=== PATIENT | female | born 2000 | race Two or more races ===

== ENCOUNTER → 2020-02-28 | Outpatient (CLI) | payer OTHER | END | disposition home or self-care (01) | LOC: PRENATAL 11:00 | PROVIDERS: ATTEND Obstetrics & Gynecology | DX: O35.0XX1 Maternal care for (suspected) central nervous system malformation in fetus, fetus 1 (principal); O35.3XX1 Maternal care for (suspected) damage to fetus from viral disease in mother, fetus 1; O26.872 Cervical shortening, second trimester ==

== ENCOUNTER 2020-06-28 16:18 | Outpatient (CLI) | payer OTHER | END 2020-06-29 14:40 | disposition home or self-care (01) | LOC: OBS/DEL 16:18 | PROVIDERS: ATTEND Obstetrics & Gynecology | DX: O76 Abnormality in fetal heart rate and rhythm complicating labor and delivery (principal); Z20.828 Contact with and (suspected) exposure to other viral communicable diseases ==

== ENCOUNTER 2020-07-12 07:39 | Inpatient (IN) | payer OTHER ==
[~2020-07-12] VITALS: Ht 144.8 cm; Wt 64.4 kg
[2020-07-12] MEDS ORDERED: PRENATAL CAPLE1 EAC1 PO (14:24)
== END 2020-07-14 10:24 | disposition home or self-care (01) | DRG 807 ==
LOC: LDR 07:39 → OB/GYN 18:38
PROVIDERS: ADMIT Obstetrics & Gynecology; ATTEND Obstetrics & Gynecology
PROC: 10E0XZZ Delivery of Products of Conception, External Approach (ICD-10-PCS; principal; 2020-07-12)
PROC: 10907ZC Drainage of Amniotic Fluid, Therapeutic from Products of Conception, Via Natural or Artificial Opening (ICD-10-PCS; 2020-07-12)
PROC: 4A1HXFZ Monitoring of Products of Conception, Cardiac Rhythm, External Approach (ICD-10-PCS; 2020-07-12)
DX: O80 Encounter for full-term uncomplicated delivery (principal); Z37.0 Single live birth; Z3A.39 39 weeks gestation of pregnancy; Z20.828 Contact with and (suspected) exposure to other viral communicable diseases

== ENCOUNTER 2021-05-03 13:13 | Outpatient (CLI) | payer OTHER ==
[~2021-05-03 13:13] MED LIST: PRENATAL CAPLE1 EAC1 PO
== END 2021-05-03 14:10 | disposition home or self-care (01) ==
LOC: PRENATAL 13:13
PROVIDERS: ATTEND Obstetrics & Gynecology Maternal & Fetal Medicine
DX: O35.0XX1 Maternal care for (suspected) central nervous system malformation in fetus, fetus 1 (principal); O35.3XX1 Maternal care for (suspected) damage to fetus from viral disease in mother, fetus 1; O98.512 Other viral diseases complicating pregnancy, second trimester; Z36.89 Encounter for other specified antenatal screening; Z3A.21 21 weeks gestation of pregnancy

== ENCOUNTER 2021-06-26 07:14 | Outpatient (CLI) | payer OTHER | END 2021-06-26 22:01 | disposition home or self-care (01) | LOC: OBS/DEL 07:14 | PROVIDERS: ATTEND Obstetrics & Gynecology | DX: O26.893 Other specified pregnancy related conditions, third trimester (principal); M54.59 Other low back pain; Z3A.29 29 weeks gestation of pregnancy ==

== ENCOUNTER 2021-07-31 17:48 | Inpatient (IN) | payer OTHER ==
[~2021-07-31] VITALS: Ht 144.8 cm; Wt 67.6 kg
== END 2021-08-02 14:13 | disposition home or self-care (01) | DRG 832 ==
LOC: LDR 17:48
PROVIDERS: ADMIT Obstetrics & Gynecology; ATTEND Obstetrics & Gynecology
PROC: 4A1HXCZ Monitoring of Products of Conception, Cardiac Rate, External Approach (ICD-10-PCS; principal; 2021-07-31)
DX: O60.03 Preterm labor without delivery, third trimester (principal); O23.43 Unspecified infection of urinary tract in pregnancy, third trimester; Z3A.34 34 weeks gestation of pregnancy; Z20.822 Contact with and (suspected) exposure to COVID-19

== ENCOUNTER 2021-08-24 05:43 | Inpatient (IN) | payer OTHER ==
[~2021-08-24] VITALS: Ht 147.3 cm; Wt 69.4 kg
== END 2021-08-26 17:13 | DRG 807 ==
LOC: OB/GYN 05:43 → LDR 05:43 → OB/GYN 09:57
PROVIDERS: ADMIT Obstetrics & Gynecology; ATTEND Obstetrics & Gynecology
PROC: 10E0XZZ Delivery of Products of Conception, External Approach (ICD-10-PCS; principal; 2021-08-24)
PROC: 0UQG7ZZ Repair Vagina, Via Natural or Artificial Opening (ICD-10-PCS; 2021-08-24)
PROC: 4A1HXFZ Monitoring of Products of Conception, Cardiac Rhythm, External Approach (ICD-10-PCS; 2021-08-24)
DX: O71.4 Obstetric high vaginal laceration alone (principal); Z37.0 Single live birth; Z3A.38 38 weeks gestation of pregnancy